=== PATIENT | female | born 1945 | race Caucasian/White ===

== ENCOUNTER → 2018-01-21 | Outpatient (CLI) | payer OTHER ==
[~2018-01-21] VITALS: Ht 170.2 cm; Wt 86.2 kg
[~2018-01-21] MED LIST: ALIGN4 MG PO; ALLEGRA ALLERG180 MG PO; ALLEGRA60 MG PO; AMLODIPINE BESYL5 MG PO; BIOTIN5000 MC1 PO; BIOTIN5000 MCG PO; CALCIUM 600 +1 EAC5 PO; CELEBREX 200 M200 M1 PO; DYAZIDE 37.5-21 EACH PO; ENALAPRIL MALEA20 MG PO; FEMARA2.5 MG PO; KLOR-CON 1010 MEQ PO; LEVOXYL75 MCG PO; NORVASC5 MG PO; OMEPRAZOLE20 MG PO; OMEPRAZOLE40 MG PO; PROLOPRIM100 MG PO; SIMVASTATIN80 MG PO; SYNTHROID75 MCG PO; TRAVATAN Z2.5 ML OPHTHALMIC; TRAVATAN Z5 ML OPHTHALMIC; VITAMIN D32000 UNI1 PO; XANAX 0.25 MG0.25 MG PO
--- NOTE | ~2018-01-21 | P ---
[facility] [place] [address] PROCEDURE REPORT Name: MIKE BOLANOS Room #: REG [facility]#: [id number] Admission: 01/21/18 Attend Phys: Kenneth Mclain Discharge: Date of : 47 Report #: [id number] THIS REPORT FOR: //name// CC: Po Santizo DATE OF SERVICE: 01/21/2018 PROCEDURE PERFORMED: Colonoscopy with biopsies. HISTORY OF PRESENT ILLNESS: The patient is a 72-year-old female with intermittent mild abdominal pain, intermittent diarrhea. Upper endoscopy was just performed, which showed mild gastritis, small hiatal hernia. Biopsies were obtained at that time to rule out H. pylori and celiac sprue. The patient is already taking omeprazole 40 mg a day as well as probiotics. She also has a history of colon polyps. No family history of colon cancer. PROCEDURE: The risks and benefits of the procedure were explained to the patient, those risks including, but not limited to bleeding, perforation, and the risk of sedation. She understood these risks and gave informed consent. Sedation was given using propofol per anesthesia. Next, a digital rectal exam was initially performed, which was normal. Next, using a standard Fujinon colonoscope, the scope was placed in the patient's anus and advanced under direct vision to the cecum. The overall prep was excellent. The cecum and ileocecal valve were normal in appearance. Ascending and transverse colon were normal. Multiple diverticula were noted in the descending and sigmoid colon, no evidence of inflammation. Random biopsies were obtained to rule out the possibility of microscopic colitis. In the rectum, there was a 3-mm sessile polyp, this was removed with cold forceps. On retroflexion, small nonbleeding internal hemorrhoids were noted, otherwise normal colonoscopy. The scope was then withdrawn and the procedure terminated. The patient tolerated the procedure well. IMPRESSION: 1. Left-sided diverticulosis. 2. Small rectal polyp. 3. Small internal hemorrhoid. 4. Otherwise, normal colonoscopy. RECOMMENDATIONS: 1. Await biopsy results. 2. If polyp is hyperplastic, repeat colonoscopy in 10 years; if adenomatous polyp, repeat in 5 years. 3. We discussed starting the Levsin on a p.r.n. basis. [address] [address] PROCEDURE REPORT Name: BOLANOSMIKE ZULUAGA Room #: REG [facility]#: [id number] Admission: 01/21/18 Attend Phys: Kenneth Mclain Discharge: Date of : 47 Report #: [id number] Thank you for allowing me to participate in her care. <ELECTRONICALLY SIGNED> By: Kenneth Santizo MD 01/23/18 0856 [id number] Kenneth Santizo MD /nt
--- NOTE | ~2018-01-21 | S ---
[facility] [place] [address] SURGICAL PATH RPT PROCEDURE Name: ALEJANDRA BOLANOS Room #: REG [facility].#: [id number] Admission: 01/21/18 Date of : 47 Discharge: Report #: [id number] Path Case #: [id number] PATHOLOGY REPORT COLLECTION DATE: 01/21/2018 RECEIVED DATE: 01/21/2018 SUBMITTING PHYS: Dr. Kenneth Santizo OTHER PHYS: Dr. Po Curry SPECIMEN(S) RECEIVED: A.Duodenum R/O sprue bx B.Gastritis R/O H pylori bx C.Random colon bx R/O microscopic colitis D.Rectal polyp bx * * * * * * * * * * * * FINAL DIAGNOSIS: A. "Duodenum R/O sprue bx", biopsy: - Small bowel / duodenal mucosa with minimal histologic alteration; no evidence of celiac sprue. B. "Gastritis R/O H. pylori bx", biopsy: - Gastric mucosa with reactive changes including foveolar hyperplasia, mild chronic inflammation and focal intestinal type epithelium; no dysplasia seen. (See comment) - Negative H. pylori immunohistochemical stain (block B1); control reacted appropriately. C. "Random colon bx R/O microscopic colitis", biopsy: - Colonic mucosa with reactive changes, reactive appearing lymphoid aggregates and focal active colitis; no dysplasia seen. (See comment) D. "Rectal polyp bx", biopsy: - Colonic mucosa with hyperplastic changes, consistent with hyperplastic polyp. (CLW:[place]; 01/22/2018) COMMENT: Within specimen B, the focal intestinal type epithelium is either a transition to small bowel / duodenal mucosa or focal intestinal metaplasia in the setting of mild chronic gastritis. Clinical and endoscopic correlation is required. Within specimen C, focal active colitis can be seen in resolving infectious type colitis, incidentally with bowel preparation and quiescent chronic idiopathic inflammatory bowel disease. No chronic architectural changes or increased chronic inflammation is identified. Again, clinical and endoscopic correlation is required. (CLW:[place]; 01/22/2018) PATHOLOGIST: Melvi Arreaga M.D. [address] [address] SURGICAL PATH RPT PROCEDURE Name: ALEJANDRA BOLANOS [id number] Admission: 01/21/18 Date of : 47 Discharge: Report #: [id number] Path Case #: [id number] REPORT ELECTRONICALLY SIGNED BY: Melvi Arreaga M.D. DATE/TIME: 01/22/2018 18:51 * * * * * * * * * * * * GROSS PATHOLOGY: A. Received in formalin labeled "Alejandra Galvez, duodenum, rule out sprue," are 3 segments of reis soft tissue measuring 1.4 x 0.5 x 0.3 cm in aggregate dimensions and ranging from 0.4 to 0.5 cm in maximum dimension. The specimen is submitted entirely in cassette A1. B. Received in formalin labeled "Alejandra Galvez, gastritis, rule out H. pylori," are 5 segments of reis soft tissue measuring 1.4 x 0.9 x 0.2 cm in aggregate dimensions and ranging from 0.2 to 0.7 cm in maximum dimension. The specimen is submitted entirely in cassette B1. C. Received in formalin labeled "Alejandra Galvez, random colon BX, rule out microscopic colitis," are 4 segments of reis soft tissue measuring 1.6 x 0.7 x 0.3 cm in aggregate dimensions and ranging from 0.2 to 0.5 cm in maximum dimension. The specimen is submitted entirely in cassette C1. D. Received in formalin labeled "Alejandra Galvez, rectal polyp BX," are 3 segments of reis soft tissue measuring 0.9 x 0.7 x 0.2 cm in aggregate dimensions and ranging from 0.2 to 0.3 cm in maximum dimension. The specimen is submitted entirely in cassette D1. (TSD; 01/21/2018) CLINICAL HISTORY: Pre-OP DX: Abdominal pain, diarrhea, Hx polyps Post-OP DX: Gastritis, diverticulosis, polyp rectal INITIAL CPT CODE(S): A; 34965 B; 09027, 35868 C; 90265 D; 90455 Professional services performed by [facility] at [address], [place] [address] Technical services performed by [facility] at [address] [place] [address], [address] [address]. [facility] [address] [place] [address] PHONE: [phone] [address] SURGICAL PATH RPT PROCEDURE Name: BOLANOSSANTO ZULUAGAROME Reed Room #: REG [facility]#: [id number] Admission: 01/21/18 Date of : 47 Discharge: Report #: [id number] Path Case #: [id number] DIRECTOR: Lowell Ozuna M.D. * * * END OF REPORT * * *
--- NOTE | ~2018-01-21 | P ---
[facility] [place] [address] PROCEDURE REPORT Name: MIKE MIGUEL Room #: REG [facility]#: [id number] Admission: 01/21/18 Attend Phys: Kenneth Mclain Discharge: Date of : 47 Report #: [id number] THIS REPORT FOR: //name// CC: Po Santizo DATE OF SERVICE: 01/21/2018 PROCEDURE PERFORMED: Upper endoscopy with biopsies. HISTORY OF PRESENT ILLNESS: The patient is a 72-year-old female with history of intermittent abdominal pain, gastroesophageal reflux disease, taking omeprazole 40 mg a day. In general, this controls her heartburn symptoms. She denies any dysphagia or odynophagia. Her weight has been stable. She also reports intermittent abdominal bloating and diarrhea. Plan is for EGD and colonoscopy today. DESCRIPTION OF PROCEDURE: The risks and benefits of the procedure were explained to the patient, those risks including but not limited to bleeding, perforation, the risk of sedation. She understood these risks and gave informed consent. Sedation was given using propofol per Anesthesia. Next, using a standard [employer] Systemsn upper endoscope, the scope was placed in the patient's mouth and advanced under direct vision through the esophagus, stomach and into the second portion of the duodenum. The larynx was normal in appearance. The esophagus was normal throughout. The GE junction was normal. Upon entering the stomach, a small hiatal hernia was noted. Overall, there was a mild diffuse gastritis. Biopsies were obtained to rule out H. pylori. There was no evidence of ulcerations or erosions. The pylorus was normal and patent. The duodenal bulb, first and second portion, were all normal. Biopsies were also obtained to rule out the possibility of celiac sprue. The scope was then withdrawn and the procedure terminated. The patient tolerated the procedure well. IMPRESSION: 1. Mild diffuse gastritis. 2. Small hiatal hernia. 3. Otherwise, normal upper endoscopy. RECOMMENDATIONS: 1. Await biopsy results. 2. Continue daily PPI therapy. 3. We will proceed with colonoscopy next today. 4. We discussed a trial of Levsin on a p.r.n. basis. [facility] [address] [place] [address] PROCEDURE REPORT Name: MIKE MIGUEL Room #: REG [facility] [place]#: [id number] Admission: 01/21/18 Attend Phys: Kenneth Mclain Discharge: Date of : 47 Report #: [id number] Thank you for allowing me to participate in her care. <ELECTRONICALLY SIGNED> By: Kenneth Santizo MD 01/21/18 0914 [id number] Kenneth Santizo MD /nt
== END | disposition home or self-care (01) ==
LOC: GI 06:39
DX: K62.1 Rectal polyp (principal); K57.30 Diverticulosis of large intestine without perforation or abscess without bleeding; K29.50 Unspecified chronic gastritis without bleeding; K64.8 Other hemorrhoids; K44.9 Diaphragmatic hernia without obstruction or gangrene; K21.9 Gastro-esophageal reflux disease without esophagitis; I10 Essential (primary) hypertension; E03.9 Hypothyroidism, unspecified; H40.9 Unspecified glaucoma; Z85.3 Personal history of malignant neoplasm of breast; Z86.010 Personal history of colon polyps; Z79.899 Other long term (current) drug therapy; Z98.41 Cataract extraction status, right eye; Z98.42 Cataract extraction status, left eye; Z96.1 Presence of intraocular lens; Z85.828 Personal history of other malignant neoplasm of skin; Z98.890 Other specified postprocedural states
CPT/HCPCS: 62110; 62900